=== PATIENT | male | born 1985 | race Caucasian/White ===

== ENCOUNTER 2021-11-18 19:20 | Emergency (ER) | payer SELFPAY ==
--- OUTSIDE RECORDS SUMMARY | 2021-11-18 19:22 | XMS REPORT | Continuity of Care Document ---
:1985 Author Organization [facility] t Address [address] [place] [address] Care Team Providers Name Role Phone MERE BLEDSOE Primary Care Physician Unavailable STELLA VELASQUEZ Attending Clinician Unavailable ASHLI SHORE Admitting Clinician Unavailable Payers Payer Name Policy Type Policy Number Effective Date Expiration Date S ource [facility] - [id number] 2015 00:00:00 OUT OF STATE Problems This patient has no known problems. Allergies, Adverse Reactions, Alerts Allergy Allergy Status Severity Reaction(s) Onset Inactive Treating Comm ents Source Name Type Date Date Clinician [facility] Active Hives [facility] I[facility]V. 5-30 ity of 00:00: [address] Medications This patient has no known medications. Procedures This patient has no known procedures. Encounters Start End Encounter Admission Attending Care Care Encounter Source Date/Time Date/Time Type Type Clinicians Facility Department ID 2020-05-11 2020-05-11 Emergency X [facility] ERT [id number] Univers 14:34:00 14:34:00 ity of [facility] 2019-09-08 2019-09-09 Emergency X RON [facility] ERT [id number] [facility] 22:12:22 00[facility]19:00 [facility] This patient has no known results.
--- NOTE | 2021-11-18 20:15 | RAD REPORT ---
EXAM DESCRIPTION: RAD - Chest Single View - 11/18/2021 8:05 pm CLINICAL HISTORY: CHEST PAIN COMPARISON: Portable 10/23/2021 TECHNIQUE: AP portable chest image was obtained 11/18/2021 8:05 pm . FINDINGS: No focal lung parenchymal process. The left base is cut off the field of view. Interstitia l pattern is similar to comparison. Heart and vasculature are normal. No measurable pleural effusion and no pneumothorax. No acute bony abnormality seen. No acute aortic findings suspected. IMPRESSION: No acute cardiopulmonary process. Exam is limited as detailed.
[2021-11-18] MEDS ORDERED: LORazepam 2 MG/ML VIAL ONE (20:21)
[2021-11-18] MEDS ORDERED: ONDANSETRON 4 MG/2 ML VIAL ONE (20:21)
[2021-11-18] MEDS ORDERED: FAMOTIDINE 20 MG/2 ML VIAL IV ONE (20:21)
[2021-11-18 20:30] LABS: Urine Blood Negative (Negative); Urine Glucose Negative (Negative); Urine Protein Negative (Negative); Urine Specific Gravity <=1.005 (1.005-1.030)
[2021-11-18 20:37] LABS: Absolute Lymphocytes (CBC) 4.1 K/uL (0.7-4.9); Hematocrit 42.7 % (39.6-49.0); MCV 89.9 fL (80-100); MPV 7.2 fL (7.6-11.3); RBC Red Blood Cell Count 4.75 M/uL (4.33-5.43)
[2021-11-18 20:46] LABS: Barbiturates NEGATIVE (NEGATIVE); Benzodiazepines NEGATIVE (NEGATIVE); Cocaine NEGATIVE (NEGATIVE); METHAMPHETAM NEGATIVE (NEGATIVE); Methadone NEGATIVE (NEGATIVE); Opiates NEGATIVE (NEGATIVE); Phencyclidine NEGATIVE (NEGATIVE); THC Cannibis NEGATIVE (NEGATIVE)
[2021-11-18 20:55] LABS: Potassium 3.2 mmol/L (3.5-5.1); Troponin High Sensitivity 4.4 pg/mL (<58.9)
--- NOTE | 2021-11-18 22:09 | RAD REPORT ---
EXAM DESCRIPTION: CT - Abdomen Pelvis W Contrast - 11/18/2021 9:38 pm CLINICAL HISTORY: upper abdomen pain COMPARISON: No comparisons TECHNIQUE: Biphasic, helical CT imaging of the abdomen and pelvis was performed following 100 ml non -ionic IV contrast. No oral contrast administered. All CT scans are performed using dose optimization technique as appropriate and may include automated exposure control or mA/KV adjustment according to patient size. FINDINGS: No suspicious findings in the lung bases. The liver, spleen, and pancreas show no suspicious findings. Liver attenuation is fatty infiltrated. No acute gallbladder or biliary tree abnormality. Symmetric renal function is seen with no hydronephrosis or suspicious renal mass. No pyelonephritis o r acute parenchymal process. No bladder abnormalities. No adrenal abnormalities. No dilated bowel loops or bowel wall thickening. Appendix is normal. No free air, free fluid or infla mmatory stranding. No mass or bulky lymphadenopathy. A midline 5 centimeter supraumbilical hernia is present with a 2 centimeter neck. There is mild congestion or edema of the herniated fat. A small 1. 5 centimeter umbilical fat only hernia also present. No suspicious bony findings. IMPRESSION: Contrast enhanced CT abdomen and pelvis showing no emergent finding. Umbilical and supraumbilical fat only hernias are present. The larger supraumbilical hernia shows rosario e congestion or edema of the herniated fat.
--- NOTE | 2021-11-18 22:20 | ER ---
Nurse's Notes [facility] Name: Jesus Gurrola Age: 36 yrs Sex: Male : 1985 Arrival Date: 11/18/2021 Time: 19:22 Bed 5 Private MD: Diagnosis: Nausea with vomiting, unspecified;Chest pain, unspecified;Upper abdominal pain, unspecified Presentation: 11/18 20:05 Chief complaint: Patient states: "I have been having chest cramps from vomiting all tw5 day. I cannot seem to stop. I have vomited up everything that I can now I am just dry heaving.". Coronavirus screen: Vaccine status: Patient reports receiving the 2nd dose of the covid vaccine. [facility]. Ebola Screen: Patient negative for fever greater than or equal to 101.5 degrees Fahrenheit, and additional compatible Ebola Virus Disease symptoms Patient denies exposure to infectious person. Patient denies travel to an Ebola-affected area in the 21 days before illness onset. Initial Sepsis Screen: Does the patient meet any 2 criteria? No. Patient's initial sepsis screen is negative. Does the patient have a suspected source of infection? No. Patient's initial sepsis screen is negative. Risk Assessment: Do you want to hurt yourself or someone else? Patient reports no desire to harm self or others. Onset of symptoms was November 18, 2021. 20:05 Method Of Arrival: Ambulatory tw5 20:05 Acuity: LASHAWN 3 tw5 Triage Assessment: 20:06 General: Appears in no apparent distress. Behavior is calm, cooperative, appropriate tw5 for age. Pain: Complains of pain in chest Pain currently is 9 out of 10 on a pain scale. Cardiovascular: Capillary refill < 3 seconds is brisk in left in bilateral. Respiratory: Airway is patent Trachea midline Respiratory effort is even, unlabored. Historical: - Allergies: 20:06 Septra; tw5 - Immunization history:: Flu vaccine is not up to date. - Social history:: Smoking status: Patient reports the use of cigarette tobacco products, smokes one pack cigarettes per day. Screenin:32 Abuse screen: Denies threats or abuse. Nutritional screening: No deficits noted. vc1 Tuberculosis screening: No symptoms or risk factors identified. Fall Risk None identified. Assessment: 20:15 Reassessment: See triage assessment. vc1 21:00 Reassessment: Patient and/or family updated on plan of care and expected duration. Pain vc1 level reassessed. Patient is alert, oriented x 3, equal unlabored respirations, skin warm/dry/pink. 21:00 GI: Dry heaving, no vomit noted. vc1 Vital Signs: 20:05 Pulse 75; Resp 18; Temp 98.6; Pulse Ox 98% ; Weight 113.4 kg; Height 6 ft. 4 in. tw5 (193.04 cm); Pain 9/10; 21:30 BP 109 / 72; Pulse 84; Resp 18; Pulse Ox 98% ; vc1 20:05 Body Mass Index 30.43 (113.40 kg, 193.04 cm) tw5 ED Course: 19:22 Patient arrived in ED. jj6 19:45 Remington Love PA is PHCP. cp 19:45 Kory Chiang DO is Attending Physician. cp 20:06 Triage completed. tw5 20:06 Arm band placed on. EKG completed in triage. Results shown to MD. tw5 20:07 XRAY Chest (1 view) In Process Unspecified. EDMS 20:10 Viviana Baptiste, RN is Primary Nurse. vc1 21:32 Patient maintains SpO2 saturation greater than 95% on room air. vc1 21:40 CT Abd/Pelvis - IV Contrast Only In Process Unspecified. EDMS 23:03 Patient has correct armband on for positive identification. Client placed on continuous bm7 cardiac and pulse oximetry monitoring. NIBP monitoring applied. court recording monitor on. 23:03 No provider procedures requiring assistance completed. IV discontinued, intact, bm7 bleeding controlled, No redness/swelling at site. Pressure dressing applied. Administered Medications: 20:23 Drug: Zofran (Ondansetron) 4 mg Route: IVP; Site: left hand; bm7 20:33 Follow up: Response: Nausea is decreased bm7 20:23 Drug: Pepcid (famotidine) 20 mg Route: IVP; Site: left hand; bm7 20:36 Follow up: Response: No adverse reaction bm7 20:23 Drug: Ativan (LORazepam) 1 mg Route: IVP; Site: left hand; bm7 20:33 Follow up: Response: No adverse reaction bm7 22:35 Drug: Phenergan (promethazine) 25 mg Route: IVP; Site: right hand; vc1 22:55 Follow up: Response: No adverse reaction; Marked relief of symptoms; Nausea is decreasedvc1 Medication: 23:03 VIS not applicable for this client. bm7 Outcome: 22:20 Discharge ordered by . lianne 23:03 Discharged to home ambulatory. bm7 23:03 Discharged to 23:03 Condition: good 23:03 Discharge instructions given to patient, family. 23:03 Instructed on discharge instructions, follow up and referral plans. medication usage, Demonstrated understanding of instructions, follow-up care, medications, Prescriptions given X 2. 23:05 Patient left the ED. vc1 Signatures: Dispatcher [employer] EDMS Remington Love PA PA cp McCarthy, Brittany, RN RN bm7 Lien Dodd tw5 Ivon Hicksj6 Viviana Baptiste RN RN vc1
--- NOTE | 2021-11-18 22:21 | EDPHYS ---
Physician Documentation [facility] Name: Jesus Gurrola Age: 36 yrs Sex: Male : 1985 Arrival Date: 11/18/2021 Time: 19:22 Bed 5 Private MD: ED Physician Kory Chiang HPI: 11/18 19:50 This 36 yrs old Male presents to ER via Ambulatory with complaints of Chest Pain, cp Nausea/Vomiting. 19:50 The patient presents to the emergency department with nausea, with "dry heaves", cp vomiting, that is continuous, abdominal pain, of the epigastric area, right upper quadrant and left upper quadrant. 19:50 Onset: The symptoms/episode began/occurred today. Possible causes: unknown. Associated cp signs and symptoms: Pertinent positives: abdominal pain, chest pain, Pertinent negatives: constipation, diarrhea, dysuria, fever, GI bleeding. Severity of symptoms: in the emergency department the symptoms are unchanged despite home interventions. Historical: - Allergies: 20:06 ; - Immunization history:: Flu vaccine is not up to date. - Social history:: Smoking status: Patient reports the use of cigarette tobacco products, smokes one pack cigarettes per day. ROS: 19:55 Constitutional: Positive for poor PO intake, Negative for body aches, chills, fever. cp 19:55 Eyes: Negative for injury, pain, redness, and discharge. cp 19:55 ENT: Negative for ear pain, sore throat, difficulty swallowing, difficulty handling secretions. 19:55 Cardiovascular: Positive for chest pain, Negative for edema, palpitations. 19:55 Respiratory: Negative for cough, shortness of breath, wheezing. 19:55 Abdomen/GI: Positive for abdominal pain, nausea and vomiting, anorexia, Negative for diarrhea, constipation, hematemesis, black/tarry stool, rectal bleeding. 19:55 Back: Negative for injury or acute deformity, pain at rest, pain with movement. 19:55 Neuro: Negative for altered mental status, headache, syncope, weakness. cp 19:55 : Negative for urinary symptoms, testicular pain cp 19:55 All other systems are negative. Exam: 19:52 ECG was reviewed by the Attending Physician. cp 20:00 Constitutional: The patient appears in no acute distress, alert, awake, cp non-diaphoretic, non-toxic, well developed, well nourished, uncomfortable. 20:00 Head/Face: Normocephalic, atraumatic. cp 20:00 Eyes: Periorbital structures: appear normal, Conjunctiva: normal, no exudate, no injection, Sclera: no appreciated abnormality, Lids and lashes: appear normal, bilaterally. 20:00 ENT: External ear(s): are unremarkable, Nose: is normal, Mouth: Lips: moist, Oral mucosa: moist, Posterior pharynx: Airway: no evidence of obstruction, patent. 20:00 Chest/axilla: Inspection: normal, Palpation: is normal, no crepitus, no tenderness. 20:00 Cardiovascular: Rate: normal, Rhythm: regular, Edema: is not appreciated, JVD: is not appreciated. 20:00 Respiratory: the patient does not display signs of respiratory distress, Respirations: normal, no use of accessory muscles, no retractions, labored breathing, is not present, Breath sounds: are clear throughout, no decreased breath sounds, no stridor, no wheezing. 20:00 Abdomen/GI: Inspection: abdomen appears normal, Bowel sounds: active, all quadrants, Palpation: soft, in all quadrants, moderate abdominal tenderness, in the epigastric area, rebound tenderness, is not appreciated, voluntary guarding, is elicited in the epigastric area, involuntary guarding, is not appreciated. 20:00 Back: CVA tenderness, is absent. 20:00 Neuro: Orientation: to person, place \\T\\ time. Mentation: is normal, Motor: moves all fours, strength is normal, Sensation: is normal. Vital Signs: 20:05 Pulse 75; Resp 18; Temp 98.6; Pulse Ox 98% ; Weight 113.4 kg; Height 6 ft. 4 in. tw5 (193.04 cm); Pain 9/10; 21:30 BP 109 / 72; Pulse 84; Resp 18; Pulse Ox 98% ; vc1 20:05 Body Mass Index 30.43 (113.40 kg, 193.04 cm) tw5 MDM: 20:00 Differential diagnosis: Nonspecific abd pain, gastritis, cholecystitis, pancreatitis, cp appendicitis, viral gastroenteritis, gastroenteritis. 20:02 Patient medically screened. cp 22:20 Data reviewed: vital signs, nurses notes, lab test result(s), radiologic studies, CT cp scan. 22:20 Counseling: I had a detailed discussion with the patient and/or guardian regarding: the cp historical points, exam findings, and any diagnostic results supporting the discharge/admit diagnosis, lab results, radiology results, to return to the emergency department if symptoms worsen or persist or if there are any questions or concerns that arise at home. Response to treatment: the patient's symptoms have markedly improved after treatment, Nausea markedly improved. Vomiting resolved and patient observed tolerating po fluids. Will discharge to home for continued monitoring. 11/18 19:42 Order name: Basic Metabolic Panel; Complete Time: 21:02 tw 11/18 21:02 Interpretation: Normal except: K 3.2; CL 108. 11/18 19:42 Order name: CBC with Diff; Complete Time: 21:02 [facility] 11/18 21:02 Interpretation: Normal except: MPV 7.2. 11/18 19:42 Order name: Troponin HS; Complete Time: 21:02 [facility] 11/18 19:59 Order name: UDS; Complete Time: 21:02 11/18 20:12 Order name: Lipase; Complete Time: 21:02 [facility] 11/18 19:42 Order name: XRAY Chest (1 view); Complete Time: 20:20 [facility] 11/18 20:20 Interpretation: Report review. 11/18 19:42 Order name: EKG; Complete Time: 19:44 [facility] 11/18 20:30 Order name: Urine Dipstick-Ancillary; Complete Time: 21:02 [facility] 11/18 21:04 Order name: CT Abd/Pelvis - IV Contrast Only; Complete Time: 22:16 11/18 19:42 Order name: Cardiac monitoring; Complete Time: 20:23 [facility] 11/18 19:42 Order name: EKG - Nurse/Tech; Complete Time: 20:07 [facility] 11/18 19:42 Order name: IV Saline Lock; Complete Time: 20:24 [facility] 11/18 19:42 Order name: Labs collected and sent; Complete Time: 20:24 [facility] 11/18 19:42 Order name: O2 Per Protocol; Complete Time: 20:24 [facility] 11/18 19:42 Order name: O2 Sat Monitoring; Complete Time: 20:24 [facility] 11/18 19:59 Order name: Urine Dipstick-Ancillary (obtain specimen); Complete Time: 20:36 cp 11/18 22:19 Order name: PO challenge; Complete Time: 22:54 cp EC:52 Rate is 83 beats/min. Rhythm is regular. AK interval is normal. QRS interval is normal. cp QT interval is normal. T waves are Inverted in lead aVR. Interpreted by me. Reviewed by me. Administered Medications: 20:23 Drug: Zofran (Ondansetron) 4 mg Route: IVP; Site: left hand; bm7 20:33 Follow up: Response: Nausea is decreased bm7 20:23 Drug: Pepcid (famotidine) 20 mg Route: IVP; Site: left hand; bm7 20:36 Follow up: Response: No adverse reaction bm7 20:23 Drug: Ativan (LORazepam) 1 mg Route: IVP; Site: left hand; bm7 20:33 Follow up: Response: No adverse reaction bm7 22:35 Drug: Phenergan (promethazine) 25 mg Route: IVP; Site: right hand; vc1 22:55 Follow up: Response: No adverse reaction; Marked relief of symptoms; Nausea is decreasedvc1 Disposition: 11/19 06:13 Co-signature as Attending Physician, Kory Chiang DO I was immediately available on-site ms3 in the Emergency Department for consultation in the care of the patient.. Disposition Summary: 11/18/21 22:20 Discharge Ordered Location: Home cp Problem: new cp Symptoms: have improved cp Condition: Stable cp Diagnosis - Nausea with vomiting, unspecified cp - Chest pain, unspecified cp - Upper abdominal pain, unspecified cp Followup: cp - With: Private Physician - When: 2 - 3 days - Reason: Recheck today's complaints Discharge Instructions: - Discharge Summary Sheet cp - Abdominal Pain, Adult cp - Nonspecific Chest Pain, Adult cp - Nausea and Vomiting, Adult cp Forms: - Medication Reconciliation Form cp - Thank You Letter cp - Antibiotic Education cp - Prescription Opioid Use cp Prescriptions: - Pepcid 20 mg Oral Tablet - take 1 tablet by ORAL route every 12 hours for 10 days; 20 tablet; Refills: 0, cp Product Selection Permitted - promethazine 25 mg Oral Tablet - take 1 tablet by ORAL route every 6 hours As needed; 20 tablet; Refills: 0, cp Product Selection Permitted Signatures: Dispatcher [employer] EDNE Remington Love PA PA cp Sims Kory, DO DO ms3 Carla Brunner, RN RN bm7 Lien Dodd tw5 Viviana Baptiste RN RN vc1 Corrections: (The following items were deleted from the chart) 11/18 20:11 20:01 LIPASE+C.LAB.BRZ ordered. EDMS EDMS 21:05 19:45 This 36 yrs old Male presents to ER via Ambulatory with complaints of Chest Pain, cp Nausea/Vomiting. cp
[2021-11-18] MEDS ORDERED: PROMETHAZINE INJ 25 MG/ML AMP ONE (22:39)
[2021-11-18] MEDS ORDERED: NA CHLORIDE 0.9% 50 ML ONE (22:40)
[2021-11-19 00:54] VITALS: TEMP 98.6; O2SAT 98
[2021-11-19 00:56] VITALS: BP 109/72
== END 2021-11-18 23:05 | disposition home or self-care (01) ==
LOC: ER 19:20
DX: R07.9 Chest pain, unspecified (principal); R11.2 Nausea with vomiting, unspecified; R10.10 Upper abdominal pain, unspecified; F17.210 Nicotine dependence, cigarettes, uncomplicated; Z88.8 Allergy status to other drugs, medicaments and biological substances
CPT/HCPCS: 36415; 71045; 74177; 80048; 80307; 81003; 83690; 84484; 85025; 93005; 99284; J2405; J2550; Q9967